=== PATIENT | male | born 1990 | race Caucasian/White ===

== ENCOUNTER 2017-08-18 23:42 | Inpatient (IN) ==
[2017-08-18] MEDS ORDERED: Ketamine Inj 200 MG/20 ML Vial IV.PUSH STA (23:50)
[2017-08-18] MEDS ORDERED: Ketamine Inj 500 MG/10 ML Vial ONE (23:51)
[2017-08-19] MEDS ORDERED: HYDROmorphone PF Inj 2 MG/ML Vial IV.PUSH ONE ×3 (00:25→04:06)
[2017-08-19 00:32] LABS: Baso # (Auto) 0.1 th/mm3 (0.0-0.2); Baso % (Auto) 0.4 % (0.0-2.0); Eos # (Auto) 0.1 th/mm3 (0.0-0.4); Hematocrit 45.1 % (39.0-51.0); Hemoglobin 15.5 gm/dL (13.0-17.0); Lymph # (Auto) 1.1 th/mm3 (1.0-4.8); Lymph % (Auto) 7.7 % (9.0-44.0); Mean Corpuscular HGB Conc 34.3 % (32.0-36.0); Mean Corpuscular Hemoglobin 29.5 pg (27.0-34.0); Mean Platelet Volume 9.5 fL (7.0-11.0); Mono # (Auto) 0.6 th/mm3 (0.0-0.9); Mono % (Auto) 4.3 % (0.0-8.0); Neut # (Auto) 12.8 th/mm3 (1.8-7.7); Neut % (Auto) 86.6 % (16.0-70.0); Platelet Count 208 th/mm3 (150-450); Red Blood Count 5.24 mil/mm3 (4.50-5.90); Red Cell Distribution Width 12.3 % (11.6-17.2); White Blood Count 14.8 th/mm3 (4.0-11.0)
[2017-08-19 00:49] LABS: Carbon Dioxide 23.2 meq/L (21.0-32.0); Potassium 3.5 meq/L (3.5-5.1)
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
[2017-08-19 00:59] LABS: Activated Partial Thrombo Time 21.5 sec (24.3-30.1); Prothrombin Time 10.3 sec (9.8-11.6)
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
[2017-08-19] MEDS ORDERED: Morphine Sulfate Inj 2 MG/ML Vial IV.PUSH PRN (05:45)
[2017-08-19] MEDS ORDERED: Morphine Inj 4 MG/ML Vial IV.PUSH PRN ×2 (05:56→10:00)
[2017-08-19] MEDS ORDERED: Pantoprazole Inj 40 MG Vial IV.PUSH SCH (06:00)
[2017-08-19] MEDS ORDERED: Ketorolac Inj 30 MG/ML (IVP) Vial IV.PUSH ONE (06:35)
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
[2017-08-19] MEDS ORDERED: Sodium Chlor 0.9% Inj 250 ML ONE (08:06)
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
[2017-08-19] MEDS ORDERED: Ketamine Inj 50 MG/5 ML Syringe IV.PUSH ONE (09:00)
[2017-08-19] MEDS ORDERED: Post-op Orders (for Pharmacy) OTHER STA (10:00)
[2017-08-19] MEDS ORDERED: Sodium Chlor 0.9% Inj 250 ML IV.SIG SCH (10:00)
[2017-08-19] MEDS ORDERED: Promethazine 25 MG Supp RECTAL PRN (10:00)
[2017-08-19] MEDS ORDERED: Bisacodyl 10 MG Supp RECTAL PRN (10:00)
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
--- NOTE | 2017-08-19 10:00 | P.OP ---
- Preoperative Diagnosis (1) Radius shaft fracture (2) Fx ulna shaft-closed Date of procedure: 08/19/17 Procedure: Open reduction internal fixation right radius and ulna shaft fractures Anesthesia: GETA Surgeon: Jose Rafael Heck MD Principal Android Developer: MARCELL Greer PA-C The surgical procedure was assisted by my physician executive marketing assistant. My P.A. presence was necessary throughout this case for the manipulation and positioning of the surgical extremity. My P.A. was assisting me throughout the duration of this procedure. The skill set of a physician executive marketing assistant was medically necessary to complete this procedure. During the surgical case the surgical supplies sterilizer was working at the back table and the physician executive marketing assistant was directly assisting me. Operation and Findings: Implants used : ITS Patient was seen and examined preoperatively. Patient was found to have displaced right radius and ulna shaft fractures. Informed consent was obtained and operative site was marked. Patient was brought to operating room and given IV sedation and general anesthesia. Timeout procedure was performed. Operative extremity was prepped and draped with alcohol followed by Hibiclens and draped in usual sterile fashion. IV antibiotics were administered prior to incision. Procedure began with a 5 inch incision over the subcutaneous border of the ulna. Fascia was elevated off of the bone. Fracture site was visualized. Fracture tenaculums were used to reduce fracture. Fracture keyed into anatomic alignment. A plate was placed across the fracture. Plate was provisionally held to bone with K wires. 3.5 cortical screws were used to compress plate to bone. Multiple screws were placed in each side of fracture. K wires were removed. Fluoroscopy confirmed excellent alignment of fracture with well- placed hardware. Incision was now closed with #1 Vicryl, 3-0 Vicryl, and tran. Next attention was turned to the radius. A 5 inch incision was made over the volar aspect of the forearm. A standard volar approach was utilized. The interval between the radial artery and superficial radial nerve was identified. Neurovascular structures were protected. Soft tissue was elevated off the bone. Fracture site was visualized. Fracture fragments were carefully reduced. Each fracture fragment keyed in anatomic alignment. K wires were used to hold provisional fixation. A plate was contoured to fit the radius. Plate was provisionally held with K wires. 3.5 cortical screws were used to compress plate to bone. Multiple screws were placed in each side of fracture. K wires were removed. Final fluoroscopy revealed excellent of fracture with well-placed hardware. Sterile dressings were applied with Xeroform 4 x 4 soft roll and Nino wrap. Patient was awakened and transferred to recovery room in stable condition. Forearm compartments were soft and compressible.
--- NOTE | 2017-08-19 10:19 | P.PNOP ---
Subjective Interval history: POD 0 s/p ORIF right radius/ulna stable in pacu Physical Exam Vital signs: Vital Signs 08/18/17 23:43 08/19/17 00:00 08/19/17 00:17 Temperature 98.2 F Pulse Rate 72 93 H Respiratory Rate 22 20 Blood Pressure 110/61 123/73 Pulse Oximetry 100 100 100 08/19/17 01:41 08/19/17 01:47 08/19/17 04:28 Temperature Pulse Rate 75 Respiratory Rate 18 18 18 Blood Pressure 102/59 L Pulse Oximetry 98 08/19/17 06:20 08/19/17 07:18 08/19/17 07:29 Temperature 98.4 F Pulse Rate 60 Respiratory Rate 18 19 19 Blood Pressure 113/54 L Pulse Oximetry 95 08/19/17 08:12 08/19/17 08:13 Temperature Pulse Rate Respiratory Rate 22 22 Blood Pressure Pulse Oximetry Intake & Output 08/18/17 08/19/17 08/19/17 18:59 06:59 18:59 Output Total 700 / 700 Balance -700 / -700 Weight 83.915 kg Output: Urine 700 / 700 Narrative: RUE: dressings clean and dry. 3+ swelling of forearm. full sensation distally. + cap refill Results - Labs CBC & Chem 7: 08/19/17 00:12 08/19/17 00:12 Laboratory Results - last 24 hr 08/19/17 08/19/17 08/19/17 00:12 00:12 00:12 WBC 14.8 H RBC 5.24 Hgb 15.5 Hct 45.1 MCV 86.0 MCH 29.5 MCHC 34.3 RDW 12.3 Plt Count 208 MPV 9.5 Neut % (Auto) 86.6 H Lymph % (Auto) 7.7 L [place] % (Auto) 4.3 Eos % (Auto) 1.0 Baso % (Auto) 0.4 Neut # (Auto) 12.8 H Lymph # (Auto) 1.1 [place] # (Auto) 0.6 Eos # (Auto) 0.1 Baso # (Auto) 0.1 WBC Differential . Differential Comment Auto diff final PT 10.3 INR 1.0 APTT 21.5 L Sodium 141 Potassium 3.5 Chloride 106 Carbon Dioxide 23.2 Anion Gap 12 BUN 10 Creatinine 1.09 Estimated GFR 81 L Random Glucose 109 H Calcium 9.0 Blood Type Blood Type Recheck Antibody Screen 08/19/17 00:12 WBC RBC Hgb Hct MCV MCH MCHC RDW Plt Count MPV Neut % (Auto) Lymph % (Auto) [place] % (Auto) Eos % (Auto) Baso % (Auto) Neut # (Auto) Lymph # (Auto) [place] # (Auto) Eos # (Auto) Baso # (Auto) WBC Differential Differential Comment PT INR APTT Sodium Potassium Chloride Carbon Dioxide Anion Gap BUN Creatinine Estimated GFR Random Glucose Calcium Blood Type O Positive Blood Type Recheck Required Antibody Screen Negative - Imaging Impressions Chest X-Ray 08/18/17 23:45 CONCLUSION: No acute cardiopulmonary disease Radius/Ulna X-Ray 08/18/17 23:47 CONCLUSION: Fractures of the radius and ulna. Abdomen/Pelvis CT 08/19/17 00:00 CONCLUSION: 1. No abdominal visceral injury Cervical Spine CT 08/19/17 00:00 CONCLUSION: 1. No acute fracture or subluxation. Chest CT 08/19/17 00:00 CONCLUSION: 1. No acute thoracic process. Forearm X-Ray 08/19/17 00:00 CONCLUSION: Satisfactory postoperative appearance of the right radius and ulna ORIF with extra medullary plates. Head CT 08/19/17 00:00 CONCLUSION: 1. No acute intracranial abnormality Forearm X-Ray 08/19/17 00:13 CONCLUSION: Bilateral radius and ulna fractures with improvement in alignment. Assessment and Plan - Assessment and Plan 1) Right Radius/Ulna Fx s/p ORIF - POD 0 -NWB -orthotech to place patient in Colleys sling -daily dressing changes POD 2 with primapore. do not wrap with jayme wrap or anything circumferential due to swelling -ice forearm -colleys sling for 48hrs and re-eval -plan for DC home when swelling appropriate -f/u with Hayden or PA in 2 weeks
[2017-08-19] MEDS ORDERED: *Meperidine Inj 25 MG/ML Vial PERIprocedural Use ONLY ONE ×2 (10:20→10:25)
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
[2017-08-19] MEDS ORDERED: fentaNYL Citrate Inj 100 MCG/2 ML Ampul ONE (10:34)
[2017-08-19] MEDS ORDERED: *morphine SULFATE 10 MG/ML PERIprocedure ONLY ONE (10:38)
[2017-08-19] MEDS ORDERED: Lidocaine PF 1% Inj 5 ML Syringe INFILTRATN ONE (12:00)
[2017-08-19] MEDS: Ketorolac Inj 30 MG/ML (IVP) Vial IV.PUSH SCH ×3 (12:22→21:21)
[2017-08-19] MEDS: Senna/Docusate Sodium 8.6/50 MG Tablet PO SCH ×2 (12:41→21:25)
[2017-08-19] MEDS: Calcium/Vitamin D 250/125 MG Tablet PO SCH ×2 (12:57→18:34)
[2017-08-19] MEDS ORDERED: Ketorolac Inj 30 MG/ML (IVP) Vial IV.PUSH PRN (13:01)
[2017-08-19] MEDS: Acetaminophen 325 MG Tablet PO PRN ×2 (13:58→21:19)
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
[2017-08-19] MEDS: ceFAZolin Inj 2,000 MG in Sodium Chlor 0.9% Inj 80 ML IV.SIG SCH (16:40)
--- NOTE | 2017-08-19 17:30 | ECG ---
Date Performed: 08/19/2017 Time Performed: 08:02:37 PTAGE: 26 years EKG: SINUS BRADYCARDIA WITH SHORT AL INTERVAL BORDERLINE ECG NO PREVIOUS TRACING DOCTOR: Rex Camacho Interpretating Date/Time 08/19/2017 17:29:42
--- NOTE | 2017-08-19 17:33 | ECG ---
Date Performed: 08/19/2017 Time Performed: 06:39:24 PTAGE: 26 years EKG: SINUS BRADYCARDIA WITH SHORT CA INTERVAL BORDERLINE ECG NO PREVIOUS TRACING DOCTOR: Rex Camacho Interpretating Date/Time 08/19/2017 17:31:22
[2017-08-19] MEDS: Gabapentin 300 MG Capsule PO SCH (18:34)
[2017-08-20] MEDS: ceFAZolin Inj 2,000 MG in Sodium Chlor 0.9% Inj 80 ML IV.SIG SCH ×2 (00:18→07:52)
[2017-08-20] MEDS: Ketorolac Inj 30 MG/ML (IVP) Vial IV.PUSH SCH (04:14)
[2017-08-20] MEDS: Acetaminophen 325 MG Tablet PO PRN ×5 (04:15→23:08)
[2017-08-20 07:30] LABS: Baso % (Auto) 0.2 % (0.0-2.0); Eos # (Auto) 0.1 th/mm3 (0.0-0.4); Eos % (Auto) 0.7 % (0.0-4.0); Hematocrit 36.5 % (39.0-51.0); Hemoglobin 12.5 gm/dL (13.0-17.0); Lymph % (Auto) 12.4 % (9.0-44.0); Mean Corpuscular HGB Conc 34.2 % (32.0-36.0); Mean Corpuscular Hemoglobin 29.7 pg (27.0-34.0); Mean Corpuscular Volume 86.9 fL (80.0-100.0); Mono # (Auto) 0.6 th/mm3 (0.0-0.9); Mono % (Auto) 6.9 % (0.0-8.0); Neut # (Auto) 6.8 th/mm3 (1.8-7.7); Neut % (Auto) 79.8 % (16.0-70.0); Platelet Count 157 th/mm3 (150-450); Red Cell Distribution Width 12.7 % (11.6-17.2); White Blood Count 8.5 th/mm3 (4.0-11.0)
[2017-08-20 07:43] LABS: Anion Gap 10 meq/L (5-15); Blood Urea Nitrogen 10 mg/dL (7-18); Calcium 8.4 mg/dL (8.5-10.1); Carbon Dioxide 22.3 meq/L (21.0-32.0); Chloride 109 meq/L (98-107); Glomerular Filtration Rate Greater Than 89 mL/min (>89); Glucose,Random 120 mg/dL (74-106); Potassium 3.5 meq/L (3.5-5.1); Sodium 141 meq/L (136-145)
--- NOTE | 2017-08-20 07:59 | P.PNOP ---
Subjective Interval history: pain under control Physical Exam Vital signs: Vital Signs 08/19/17 08:12 08/19/17 08:13 08/19/17 10:20 Temperature 97 F L Pulse Rate 102 H Respiratory Rate 22 22 19 Blood Pressure 126/69 Pulse Oximetry 96 08/19/17 10:25 08/19/17 10:30 08/19/17 10:45 Temperature Pulse Rate 101 H 85 67 Respiratory Rate 22 22 23 Blood Pressure 132/66 134/70 124/64 Pulse Oximetry 96 100 98 08/19/17 11:00 08/19/17 12:00 08/19/17 12:25 Temperature 98 F Pulse Rate 61 61 64 Respiratory Rate 19 18 20 Blood Pressure 115/64 112/62 118/62 Pulse Oximetry 98 97 98 08/19/17 14:28 08/19/17 16:00 08/19/17 18:36 Temperature 98.2 F Pulse Rate 64 Respiratory Rate 18 18 Blood Pressure 110/65 Pulse Oximetry 99 98 08/19/17 20:00 08/20/17 00:00 Temperature 98.4 F 97.5 F L Pulse Rate 64 71 Respiratory Rate 17 16 Blood Pressure 100/56 L 115/57 L Pulse Oximetry 97 98 Intake & Output 08/19/17 08/20/17 08/20/17 18:59 06:59 18:59 Intake Total 2602 / 2602 1266 / 1266 Output Total 1600 / 1600 1300 / 1300 Balance 1002 / 1002 -34 / -34 Weight 84.1 kg Intake: IV 1202 / 1202 1026 / 1026 LR 1000 mL Inj 1,000 ML @ 100 1102 / 1102 926 / 926 mls/hr IV.CONT .Q10H BENJI Rx#: [id number] Ancef Inj 2,000 MG In NS Inj 80 100 / 100 100 / 100 ML @ 200 mls/hr IV.SIG Q8H BENJI Rx#:[id number] Oral 0 / 0 240 / 240 Anesthesia Amount 1400 / 1400 Output: Urine 1400 / 1400 1300 / 1300 Estimated Blood Loss 200 / 200 Other: # Voids 3 Date of Last Bowel Movement 08/17/17 08/17/17 08/17/17 # Bowel Movements 2 Narrative: in bed, nad dressing c/d/i colleys sling in place swelling nvi, sensation intact cap refill able to move fingers Results - Labs CBC & Chem 7: 08/20/17 06:10 08/20/17 06:10 Laboratory Results - last 24 hr 08/20/17 08/20/17 06:10 06:10 WBC 8.5 RBC 4.20 L Hgb 12.5 L D Hct 36.5 L MCV 86.9 MCH 29.7 MCHC 34.2 RDW 12.7 Plt Count 157 MPV 9.0 Neut % (Auto) 79.8 H Lymph % (Auto) 12.4 [place] % (Auto) 6.9 Eos % (Auto) 0.7 Baso % (Auto) 0.2 Neut # (Auto) 6.8 Lymph # (Auto) 1.0 [place] # (Auto) 0.6 Eos # (Auto) 0.1 Baso # (Auto) 0.0 WBC Differential . Differential Comment Auto diff final Sodium 141 Potassium 3.5 Chloride 109 H Carbon Dioxide 22.3 Anion Gap 10 BUN 10 Creatinine 0.81 Estimated GFR Greater than 89 Random Glucose 120 H Calcium 8.4 L - Imaging Impressions Forearm X-Ray 08/19/17 00:00 CONCLUSION: Satisfactory postoperative appearance of the right radius and ulna ORIF with extra medullary plates. Assessment and Plan - Assessment and Plan 1) Right Radius/Ulna Fx s/p ORIF - POD 0 -NWB - patient in Colleys sling -daily dressing changes POD 2 with primapore. do not wrap with jayme wrap or anything circumferential due to swelling -ice forearm -colleys sling for 48hrs and re-eval -plan for DC home when swelling appropriate -f/u with Hayden or GUDELIA in 2 weeks
[2017-08-20] MEDS: Gabapentin 300 MG Capsule PO SCH ×3 (08:11→17:15)
[2017-08-20] MEDS: Calcium/Vitamin D 250/125 MG Tablet PO SCH ×3 (08:11→17:15)
[2017-08-20] MEDS: Senna/Docusate Sodium 8.6/50 MG Tablet PO SCH ×2 (08:11→21:43)
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
[2017-08-21] MEDS: Acetaminophen 325 MG Tablet PO PRN ×3 (05:34→12:42)
[2017-08-21] MEDS: Calcium/Vitamin D 250/125 MG Tablet PO SCH ×2 (09:10→12:42)
[2017-08-21] MEDS: Gabapentin 300 MG Capsule PO SCH ×2 (09:10→12:42)
[2017-08-21] MEDS: Senna/Docusate Sodium 8.6/50 MG Tablet PO SCH (09:11)
--- NOTE | 2017-08-21 12:13 | P.PNOP ---
Physical Exam Vital signs: Vital Signs 08/20/17 12:38 08/20/17 16:00 08/20/17 17:45 Temperature 98.2 F Pulse Rate 57 L Respiratory Rate 18 19 18 Blood Pressure 109/58 L Pulse Oximetry 99 08/20/17 20:00 08/21/17 00:00 08/21/17 08:00 Temperature 97.9 F 97.8 F 98.1 F Pulse Rate 78 65 64 Respiratory Rate 20 20 14 Blood Pressure 140/88 132/68 108/60 Pulse Oximetry 98 99 98 08/21/17 09:40 Temperature Pulse Rate Respiratory Rate 18 Blood Pressure Pulse Oximetry Intake & Output 08/20/17 08/21/17 08/21/17 18:59 06:59 18:59 Intake Total 1000 / 1000 Balance 1000 / 1000 Intake: Oral 1000 / 1000 Other: # Voids 5 Date of Last Bowel Movement 08/20/17 08/20/17 08/20/17 # Bowel Movements 2 Narrative: GENERAL: This is a 26-year-old male lying in bed asleep. No distress noted. SKIN: Warm and dry. HEAD: Atraumatic. Normocephalic. EYES: PERRLA ENT: No nasal bleeding or discharge. Mucous membranes pink and moist. NECK: Trachea midline. No JVD. CARDIOVASCULAR: Regular rate and rhythm. RESPIRATORY: No accessory muscle use. Lungs are clear to auscultation. Breath sounds equal bilaterally. No distress or dyspnea. GASTROINTESTINAL: BS + x 4 quads. Abdomen soft, non-tender, nondistended. MUSCULOSKELETAL: Extremities without cyanosis, or edema. Right upper extremity in collyes sling for elevation. + peripheral pulses x 4 extremities. Warm with good capillary refill and sensation. MAEW. NEUROLOGICAL: Asleep. Results - Labs CBC & Chem 7: 08/20/17 06:10 08/20/17 06:10 Assessment and Plan - Assessment and Plan 1) Right Radius/Ulna Fx s/p ORIF - -NWB - patient in Colleys sling -daily dressing changes POD 2 with primapore. do not wrap with jayme wrap or anything circumferential due to swelling -ice forearm -colleys sling for 48hrs and re-eval -plan for DC home, swelling improved -f/u with Hayden or PA in 2 weeks
[2017-08-21 13:10] VITALS: BP 128/68; PULSE 68; RESP 16; TEMP 97.4; O2SAT 97
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
== END 2017-08-21 16:32 | disposition home or self-care (01) ==
LOC: NEPC 23:42 → NEDA 08-19 02:00 → NEDH 08-19 06:20 → N06 08-19 12:38
PROVIDERS: ADMIT Surgery; ATTEND Surgery
DX: S40.211A Abrasion of right shoulder, initial encounter; F19.11 Other psychoactive substance abuse, in remission; S52.301A Unspecified fracture of shaft of right radius, initial encounter for closed fracture; S51.811A Laceration without foreign body of right forearm, initial encounter; Z79.891 Long term (current) use of opiate analgesic; S52.201A Unspecified fracture of shaft of right ulna, initial encounter for closed fracture; V43.62XA Car passenger injured in collision with other type car in traffic accident, initial encounter; Z79.899 Other long term (current) drug therapy

== ENCOUNTER 2018-02-17 07:30 | Inpatient (IN) ==
[2018-02-17] MEDS ORDERED: Tobramycin Sulfate 1,200 MG Vial (for ortho/sterile core) OTHER ONE (08:22)
[2018-02-17] MEDS ORDERED: Chlorhexidine Gluconate 2% 1 Pack (2 Cloths) TOPICAL ONE (09:00)
[2018-02-17] MEDS ORDERED: Chlorhexidine 4% Topical 120 APPLIC/120 ML Bottle TOPICAL SCH (09:00)
[2018-02-17] MEDS ORDERED: Sodium Chlor 0.9% Inj 500 ML IV.CONT ONE (09:00)
[2018-02-17] MEDS ORDERED: Metoprolol Tartrate 25 MG Tablet PO ONE (09:00)
[2018-02-17] MEDS ORDERED: ceFAZolin Inj 1 GM Vial (Addvantage) IV.SIG ONE (09:36)
[2018-02-17] MEDS ORDERED: Post-op Orders (for Pharmacy) OTHER STA ×2 (10:27→10:30)
--- NOTE | 2018-02-17 10:34 | XR ---
EXAM DATE: 02/17/2018 10:29 AM EST AGE/SEX: 27 years / Male INDICATIONS: Hardware removal. CLINICAL DATA: This is the patient's initial encounter. Patient reports that signs and symptoms have been present for 1 day and indicates a pain score of Nonresponsive. MEDICAL/SURGICAL HISTORY: Non-responsive. Non-responsive. COMPARISON: [facility] – [place], FOREARM RIGHT 2V, 08/19/2017. . FINDINGS: Hardware has been removed from the ulnar shaft. Hardware remains within the radial shaft. CONCLUSION: There is post removal of hardware from the ulnar shaft. Electronically signed by: Micha Masterson MD Board Certified Radiologist 02/17/2018 10:33 AM EST
--- NOTE | 2018-02-17 10:37 | P.OP ---
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 Anesthesia: GETA Surgeon: Jose Rafael Heck MD Sail Lay Out Worker: MARCELL Greer PA-C The surgical procedure was assisted by my physician family services assistant. My P.A. presence was necessary throughout this case for the manipulation and positioning of the surgical extremity. My P.A. was assisting me throughout the duration of this procedure. The skill set of a physician family services assistant was medically necessary to complete this procedure. During the surgical case the surgical resident was working at the back table and the physician family services assistant was directly assisting me. Operation and Findings: Van is known to me from previous open reduction internal fixation of right radius and ulna fractures. He has been incarcerated and has not followed up as scheduled. He is presented to clinic this week with signs of infection of right ulna with probable nonunion. Informed consent was obtained. Operative site was marked. He was given IV sedation and general anesthesia. Antibiotics were held until cultures were given. Right arm was prepped with alcohol followed by Hibiclens and draped in usual sterile fashion. Timeout procedure was performed. Procedure began with incision through previous scar. The scar was excised along with sinus tracts. Full-thickness skin was excised. At this point attention was turned to hardware removal. The hardware was visualized. Each of the screws was now removed. The plate was now removed. Next attention was turned towards debridement of the ulna. An excisional debridement was performed. Cultures were obtained from deep tissue. Curettes and rongeurs were used to debride soft tissue and bone. A TPS bur was used to thoroughly debride the fracture and holes from the screws. After completion of debridement the wound was thoroughly irrigated with pulsatile lavage. Next antibiotic beads were placed. 10 cc of stimulan cement was mixed with 1 g of vancomycin and 1.2 g of tobramycin. Once the beads were set they were packed into the nonunion site and defect of the ulna. The incision was now closed with 3-0 PDS and 3-0 nylon. Sterile dressings were applied. Patient was awakened and transferred to recovery room in stable condition. Needle and sponge counts were correct.
[2018-02-17] MEDS ORDERED: *HYDROmorphone PF Inj 1 MG/ML Ampul PERIprocedural Use ONLY ONE ×2 (11:12→11:21)
[2018-02-17] MEDS ORDERED: *Meperidine Inj 25 MG/ML Vial PERIprocedural Use ONLY ONE (11:12)
[2018-02-17] MEDS ORDERED: Morphine Inj 4 MG/ML Vial ONE (11:24)
[2018-02-17] MEDS ORDERED: fentaNYL Citrate Inj 100 MCG/2 ML Ampul ONE (11:24)
[2018-02-17] MEDS ORDERED: Morphine Inj 4 MG/ML Vial IV.PUSH PRN (11:30)
--- NOTE | 2018-02-17 11:49 | P.PNOP ---
Subjective Interval history: POD 0 s/p I&D with removal of HW and Abx bead placement right forearm stable in pacu Physical Exam Vital signs: Vital Signs 02/17/18 08:40 02/17/18 11:10 02/17/18 11:15 Temperature 97.8 F 97.8 F Pulse Rate 93 H 88 Respiratory Rate 16 22 23 Blood Pressure 134/80 138/85 133/81 Pulse Oximetry 100 100 100 02/17/18 11:30 02/17/18 11:45 Temperature Pulse Rate 85 85 Respiratory Rate 25 H 25 H Blood Pressure 146/84 H 134/80 Pulse Oximetry 100 100 Intake & Output 02/16/18 02/17/18 02/17/18 18:59 06:59 18:59 Weight 81.5 kg Other: Weight On Admission 81.5 kg Narrative: RUE: +long arm splint. intact Results - Imaging Impressions Forearm X-Ray 02/17/18 00:00 CONCLUSION: There is post removal of hardware from the ulnar shaft. 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 will likely require picc line to be arranged by ID -f/u with Hayden or GUDELIA in 2 weeks
[2018-02-17] MEDS ORDERED: Piperacil/Tazo 3.375 GM Premix 3.375 GM/50 ML PIGGYBACK IV.SIG SCH (14:00)
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
[2018-02-17] MEDS ORDERED: Vancomycin Consult Pharmacy OTHER PRN (14:02)
[2018-02-17] MEDS: Calcium/Vitamin D 250/125 MG Tablet PO SCH ×2 (15:56→17:12)
[2018-02-17 16:51] LABS: Baso % (Auto) 0.3 % (0.0-2.0); Eos % (Auto) 0.1 % (0.0-4.0); Hematocrit 40.6 % (39.0-51.0); Hemoglobin 14.6 gm/dL (13.0-17.0); Lymph # (Auto) 0.6 th/mm3 (1.0-4.8); Lymph % (Auto) 7.7 % (9.0-44.0); Mean Corpuscular Hemoglobin 30.8 pg (27.0-34.0); Mean Corpuscular Volume 85.4 fL (80.0-100.0); Mean Platelet Volume 8.5 fL (7.0-11.0); Mono # (Auto) 0.1 th/mm3 (0.0-0.9); Mono % (Auto) 1.4 % (0.0-8.0); Neut # (Auto) 7.1 th/mm3 (1.8-7.7); Neut % (Auto) 90.5 % (16.0-70.0); Platelet Count 193 th/mm3 (150-450); Red Blood Count 4.76 mil/mm3 (4.50-5.90); Red Cell Distribution Width 12.8 % (11.6-17.2); White Blood Count 7.9 th/mm3 (4.0-11.0)
[2018-02-17 17:13] LABS: Alanine Aminotransferase 17 U/L (12-78); Albumin 3.9 g/dL (3.4-5.0); Anion Gap 7 meq/L (5-15); Aspartate Aminotransferase 13 U/L (15-37); Blood Urea Nitrogen 11 mg/dL (7-18); Calcium 9.1 mg/dL (8.5-10.1); Carbon Dioxide 26.9 meq/L (21.0-32.0); Chloride 102 meq/L (98-107); Glomerular Filtration Rate 72 mL/min (>89); Glucose,Random 170 mg/dL (74-106); Potassium 3.7 meq/L (3.5-5.1); Sodium 136 meq/L (136-145)
[2018-02-17 17:15] LABS: Alkaline Phosphatase 75 U/L (45-117); Total Protein 7.7 g/dL (6.4-8.2)
[2018-02-17 17:19] LABS: Erythrocyte Sedimentation Rate 4 mm/hr (0-15)
[2018-02-17] MEDS: Vancomycin Inj 1,250 MG in Sodium Chlor 0.9% Inj 250 ML IV.SIG SCH (19:07)
[2018-02-17] MEDS: Senna/Docusate Sodium 8.6/50 MG Tablet PO SCH (20:22)
[2018-02-17] MEDS ORDERED: Vancomycin Inj 1,000 MG in Sodium Chlor 0.9% Inj 250 ML IV.SIG SCH (23:00)
[2018-02-18] MEDS: Vancomycin Inj 1,250 MG in Sodium Chlor 0.9% Inj 250 ML IV.SIG SCH ×3 (02:21→17:58)
--- NOTE | 2018-02-18 08:41 | P.PNOP ---
Subjective Interval history: The patient does not have any new complaints as far as the right arm is concerned. There is no new numbness or tingling Physical Exam Vital signs: Vital Signs 02/17/18 08:40 02/17/18 11:10 02/17/18 11:15 Temperature 97.8 F 97.8 F Pulse Rate 93 H 88 Respiratory Rate 16 22 23 Blood Pressure 134/80 138/85 133/81 Pulse Oximetry 100 100 100 02/17/18 11:30 02/17/18 11:45 02/17/18 12:00 Temperature Pulse Rate 85 85 76 Respiratory Rate 25 H 25 H 25 H Blood Pressure 146/84 H 134/80 129/72 Pulse Oximetry 100 100 100 02/17/18 13:00 02/17/18 14:00 02/17/18 15:00 Temperature 98.1 F Pulse Rate 63 94 H 71 Respiratory Rate 22 20 18 Blood Pressure 109/62 117/67 102/59 L Pulse Oximetry 100 100 100 02/17/18 16:39 02/17/18 20:00 02/18/18 00:00 Temperature 98 F 97.4 F L 97.9 F Pulse Rate 82 62 73 Respiratory Rate 18 20 18 Blood Pressure 121/59 L 127/60 100/57 L Pulse Oximetry 97 97 96 02/18/18 04:08 Temperature 97.6 F Pulse Rate 63 Respiratory Rate 18 Blood Pressure 105/64 Pulse Oximetry 96 Intake & Output 02/17/18 02/18/18 02/18/18 18:59 06:59 18:59 Intake Total 2460 / 2460 1505.0 / 1505.0 Output Total 50 / 50 Balance 2410 / 2410 1505.0 / 1505.0 Weight 81.5 kg 82 kg Intake: IV 1000 / 1000 725.0 / 725.0 LR 1000 mL Inj 1,000 ML @ 80 1000 / 1000 mls/hr IV.CONT .[id number] [facility] Rx# :[id number] Maxipime Inj 2,000 MG In NS Inj 200 / 200 100 ML @ 200 mls/hr IV.SIG Q12H [facility] Rx#:[id number] Vancomycin Inj 1,250 MG In NS 525.0 / 525.0 Inj 250 ML @ 250 mls/hr IV.SIG Q8H [facility] Rx#:[id number] Oral 460 / 460 780 / 780 Anesthesia Amount 1000 / 1000 Output: Estimated Blood Loss 50 / 50 Other: # Voids 1 3 Weight On Admission 81.5 kg Narrative: The right upper extremity is dressed and clean. He can move the fingers well. There is some mild swelling about the fingertips. There is brisk capillary refill with normal sensation Results - Labs CBC & Chem 7: 02/17/18 16:02 02/17/18 16:02 Laboratory Results - last 24 hr 02/17/18 02/17/18 16:02 16:02 WBC 7.9 RBC 4.76 Hgb 14.6 Hct 40.6 MCV 85.4 MCH 30.8 MCHC 36.0 RDW 12.8 Plt Count 193 MPV 8.5 Prelim Diff (Auto) Caponizer Neut % (Auto) 90.5 H Lymph % (Auto) 7.7 L [place] % (Auto) 1.4 Eos % (Auto) 0.1 Baso % (Auto) 0.3 Neut # (Auto) 7.1 Lymph # (Auto) 0.6 L [place] # (Auto) 0.1 Eos # (Auto) 0.0 Baso # (Auto) 0.0 WBC Differential . Differential Comment Auto diff final ESR 4 Sodium 136 Potassium 3.7 Chloride 102 Carbon Dioxide 26.9 Anion Gap 7 BUN 11 Creatinine 1.20 Estimated GFR 72 L Random Glucose 170 H Calcium 9.1 Total Bilirubin 1.0 AST 13 L ALT 17 Alkaline Phosphatase 75 C-Reactive Protein Less than 0.29 Total Protein 7.7 Albumin 3.9 Microbiology 02/17/18 10:00 Tissue - Other Fungal Smear - Final No fungal elements seen 02/17/18 10:00 Tissue - Other Gram Stain - Final - Imaging Impressions Forearm X-Ray 02/17/18 00:00 CONCLUSION: There is post removal of hardware from the ulnar shaft. 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 will likely require picc line to be arranged by ID -f/u with Hayden or GUDELIA in 2 weeks
[2018-02-18] MEDS: Senna/Docusate Sodium 8.6/50 MG Tablet PO SCH ×2 (09:03→21:03)
[2018-02-18] MEDS: Multivitamin/Minerals Therapeutic Tablet PO SCH (09:03)
[2018-02-18] MEDS: Calcium/Vitamin D 250/125 MG Tablet PO SCH ×3 (09:03→17:58)
[2018-02-18 09:17] LABS: Glomerular Filtration Rate Greater Than 89 mL/min (>89)
[2018-02-18] MEDS ORDERED: Pharmacy Ordered Lab Info OTHER ONE (17:45)
[2018-02-19] MEDS: Vancomycin Inj 1,250 MG in Sodium Chlor 0.9% Inj 250 ML IV.SIG SCH ×2 (01:30→10:56)
[2018-02-19] MEDS: Multivitamin/Minerals Therapeutic Tablet PO SCH (08:04)
[2018-02-19] MEDS: Senna/Docusate Sodium 8.6/50 MG Tablet PO SCH ×2 (08:04→20:24)
[2018-02-19] MEDS: Calcium/Vitamin D 250/125 MG Tablet PO SCH ×3 (08:05→17:39)
--- NOTE | 2018-02-19 12:21 | P.PNOP ---
Subjective Interval history: No new complaints as far as the arm is concerned Physical Exam Vital signs: Vital Signs 02/18/18 16:00 02/18/18 20:00 02/19/18 00:00 Temperature 98 F 97.9 F 97.9 F Pulse Rate 66 61 57 L Respiratory Rate 18 18 18 Blood Pressure 99/52 L 98/54 L 100/59 L Pulse Oximetry 98 98 98 02/19/18 08:00 Temperature 97.3 F L Pulse Rate 53 L Respiratory Rate 17 Blood Pressure 106/60 Pulse Oximetry 97 Intake & Output 02/18/18 02/19/18 02/19/18 18:59 06:59 18:59 Intake Total 962.5 / 962.5 2825.0 / 2825.0 220 / 220 Balance 962.5 / 962.5 2825.0 / 2825.0 220 / 220 Weight 70.6 kg Intake: IV 362.5 / 362.5 1625.0 / 1625.0 LR 1000 mL Inj 1,000 ML @ 80 1000 / 1000 mls/hr IV.CONT .[id number] [facility] Rx# :[id number] Maxipime Inj 2,000 MG In NS Inj 100 / 100 100 / 100 100 ML @ 200 mls/hr IV.SIG Q12H [facility] Rx#:[id number] Vancomycin Inj 1,250 MG In NS 262.5 / 262.5 525.0 / 525.0 Inj 250 ML @ 250 mls/hr IV.SIG Q8H [facility] Rx#:[id number] Oral 600 / 600 1200 / 1200 220 / 220 Other: # Voids 5 # Urine Diapers 5 Narrative: The right upper extremity is dressed and clean. He can move the fingers well. There is some mild swelling about the fingertips. There is brisk capillary refill with normal sensation. No change from yesterday. 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 will likely require picc line to be arranged by ID -f/u with Hayden or GUDELIA in 2 weeks
[2018-02-19] MEDS: ceFAZolin 2 GM Premix Inj 2 GM/50 ML PIGGYBACK IV.SIG SCH ×2 (16:59→17:39)
[2018-02-19] MEDS ORDERED: Pharmacy Ordered Lab Info OTHER ONE (17:45)
[2018-02-20] MEDS: ceFAZolin 2 GM Premix Inj 2 GM/50 ML PIGGYBACK IV.SIG SCH ×2 (01:10→09:32)
[2018-02-20 05:33] LABS: Glomerular Filtration Rate Greater Than 89 mL/min (>89)
--- NOTE | 2018-02-20 07:14 | P.PNOP ---
Subjective Interval history: POD 3 s/p I&D with ARACELIS and Abx bead placement right ulna doing well. pain controlled. no new complaints. Physical Exam Vital signs: Vital Signs 02/19/18 08:00 02/19/18 11:30 02/19/18 12:00 Temperature 97.3 F L 98.3 F Pulse Rate 53 L 60 Respiratory Rate 17 20 16 Blood Pressure 106/60 165/81 H Pulse Oximetry 97 98 02/19/18 16:00 02/19/18 20:00 02/20/18 00:00 Temperature 97.9 F 97.8 F 97.6 F Pulse Rate 54 L 58 L 54 L Respiratory Rate 17 20 16 Blood Pressure 102/56 L 113/55 L 106/58 L Pulse Oximetry 97 98 99 Intake & Output 02/19/18 02/20/18 02/20/18 18:59 06:59 18:59 Intake Total 892.5 / 892.5 1010 / 1010 Balance 892.5 / 892.5 1010 / 1010 Weight 75.2 kg Intake: IV 412.5 / 412.5 50 / 50 Maxipime Inj 2,000 MG In NS Inj 100 / 100 100 ML @ 200 mls/hr IV.SIG Q12H BENJI Rx#:[id number] Vancomycin Inj 1,250 MG In NS 262.5 / 262.5 Inj 250 ML @ 250 mls/hr IV.SIG Q8H BENJI Rx#:[id number] Ancef 2 GM Premix Inj 2 gm In 50 / 50 50 / 50 50 ml @ 200 mls/hr IV.SIG Q8H BENJI Rx#:[id number] Oral 480 / 480 960 / 960 Other: # Voids 4 8 # Bowel Movements 1 Narrative: RUE: Dressings clean and dry. intact. NVI to median/ulnar nerve. 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 will likely require picc line to be arranged by ID -f/u with [facility] or [facility] in 2 weeks -cleared for discharge once infectious Dz arranged antibiotics
--- NOTE | 2018-02-20 07:36 | P.DS ---
Date of admission: 02/17/18 08:18 Primary care physician: UNKNOWN Attending physician on discharge: Jose Rafael Heck Anticipated date of discharge: 02/20/18 Brief History from admission: Patient previously known to Dr. Heck for open reduction internal fixation of the right radius and ulna. Patient was seen in the office for his discharge appointment in August and then was lost to follow-up. He showed up a week ago escorted by correctional facility offers as he has been in penit[facility]. He states that he has had multiple issues with the left arm and states that 3 different screws had come out. The decision was made to move forward with irrigation and debridement with removal of hardware due to subsequent infection. DS: Diagnosis - Discharge Diagnosis (1) Chronic osteomyelitis of right ulna Status: Acute (2) Fracture of right ulna with nonunion Status: Acute DS: Summary Hospital Course: Patient admitted from an outpatient basis for removal of hardware with irrigation and debridement of the right ulna. He tolerated it well. He was admitted to [facility]. Cultures were returned back positive for MSSA. Infectious disease was consulted. Will defer to infectious disease for antibiotic arrangement. He was placed in a long-arm splint and will maintain that splint at all times. He will remain nonweightbearing in the right arm. He was hemodynamically stable and fit for discharge back to the correctional facility. He is cleared for discharge when chatterbox been arranged by the infectious disease team. He will follow-up with Dr. Heck or his PA in 2 weeks. - Time Spent with Patient Total time spent providing and/or coordinating discharge services: Less than 30 minutes - Quality: VTE Deep Vein Thrombosis/Pulmonary Embolism Present on Admission: No Exam Vital signs: Vital Signs 02/19/18 08:00 02/19/18 11:30 02/19/18 12:00 Temperature 97.3 F L 98.3 F Pulse Rate 53 L 60 Respiratory Rate 17 20 16 Blood Pressure 106/60 165/81 H Pulse Oximetry 97 98 02/19/18 16:00 02/19/18 20:00 02/20/18 00:00 Temperature 97.9 F 97.8 F 97.6 F Pulse Rate 54 L 58 L 54 L Respiratory Rate 17 20 16 Blood Pressure 102/56 L 113/55 L 106/58 L Pulse Oximetry 97 98 99 Intake & Output 02/19/18 02/20/18 02/20/18 18:59 06:59 18:59 Intake Total 892.5 / 892.5 1010 / 1010 Balance 892.5 / 892.5 1010 / 1010 Weight 75.2 kg Intake: IV 412.5 / 412.5 50 / 50 Maxipime Inj 2,000 MG In NS Inj 100 / 100 100 ML @ 200 mls/hr IV.SIG Q12H BENJI Rx#:[id number] Vancomycin Inj 1,250 MG In NS 262.5 / 262.5 Inj 250 ML @ 250 mls/hr IV.SIG Q8H BENJI Rx#:[id number] Ancef 2 GM Premix Inj 2 gm In 50 / 50 50 / 50 50 ml @ 200 mls/hr IV.SIG Q8H BENJI Rx#:[id number] Oral 480 / 480 960 / 960 Other: # Voids 4 8 # Bowel Movements 1 Narrative: RUE: Dressings clean and dry. intact. NVI to median/ulnar nerve. full extension of wrist and fingers Results Procedures completed during hospitalization: Irrigation and debridement with removal of hardware and antibiotic bead placement right ulna Labs on day of discharge: Labs from last 24 hours 02/20/18 04:00 Creatinine 0.78 Estimated GFR Greater than 89 - Impressions ITS Impressions Forearm X-Ray 02/17/18 00:00 CONCLUSION: There is post removal of hardware from the ulnar shaft. Discharge Plan - Discharge Disposition Patient Disposition: [address] [employer] - Discharge Condition Condition: Fair - Discharge Order Discharge Orders: Discharge Order (Routine); Ordered 02/20/18 Ordered By: Clarence Weber - Physicians Team Primary Care Provider: UNKNOWN, Attending Provider: Jose Rafael Heck Other Providers: Jose Rafael Heck MD ; Shamika Amaya MD - Rxs /Orders / Referrals /Forms Prescriptions: Continue acetaminophen 325 mg Tablet 650 mg PO Q4H PRN (Reason: Pain 1-10 And/Or Fever >101f) RF: 0 Referrals: Jose Rafael Heck MD [Physician] - See Instructions (2 weeks) UNKNOWN, [Primary Care Provider] - See Instructions
[2018-02-20] MEDS: Multivitamin/Minerals Therapeutic Tablet PO SCH (09:32)
[2018-02-20] MEDS: Calcium/Vitamin D 250/125 MG Tablet PO SCH ×3 (09:32→17:31)
[2018-02-20] MEDS: Senna/Docusate Sodium 8.6/50 MG Tablet PO SCH ×2 (09:32→22:13)
--- NOTE | 2018-02-20 10:32 | P.DCO ---
Post Hospital Infusion Therapy - Infusion Therapy Location of Infusion Therapy: Ambulatory Infusion Therapy Order (IV Abx in long term) - Patient Information Patient Weight: 75.2 kg - Diagnosis (1) Osteomyelitis of right ulna Code(s): M86.9 - Osteomyelitis, unspecified (2) MSSA (methicillin susceptible Staphylococcus aureus) infection Code(s): A49.01 - Methicillin susceptible Staphylococcus aureus infection, unspecified site - Administer Medication Ceftriaxone Dose: 2 grams IV Directions: q 24 hours Stop Treatment: 03/30/18 - Additional Information Venous Access: PICC Line Additional Instructions: [x] Peripheral flush and dressing changes per protocol [x] Implanted port and central pipe line inspector: * Implanted port: 10 ml Normal Saline followed by 5 ml Heparin 100 units/ml Heparin flush after each use and monthly to maintain. [] May leave port accessed during therapy. [] May leave peripheral site accessed for duration of therapy. [x] If patient has SOB or respiratory distress, check oxygen saturation. If less than 90% or clinical signs of respiratory distress, administer oxygen at 2 L/min. via nasal cannula and notify physician. [x] Anaphylaxis/Reaction orders: * Stop infusion. * Keep IV line open with saline flush. * Notify physician. * Monitor vital signs every 15 minutes until symptoms resolve. * Check Oxygen saturation; Oxygen at 2 L/min. via nasal cannula if less than 90% or clinical signs of respiratory distress. * Administer diphenhydramine (Benadryl) 25 mg IV STAT, (unless patient has received as pre-med). May repeat once, if necessary. * Solu-Cortef 250 mg IVP over 30-60 seconds, use 100 mg vials for each dissolution. * Epinephrine (1mg/1 ml) 0.3 mg subcutaneously or IVP now with any signs of respiratory distress. * Check with physician for new additional pre-med orders if patient is re- challenged or re-treated. [x] May remove PICC line when treatment complete. [x] If the patient is admitted to the hospital, the ED, or transferred via [facility] , complete transfer form including medication reconciliation order sheet. Weekly Labs: CBC w/diff, Creatinine, LFTs (Hepatic Function Test) (Labs every Tuesday while on IV Rocephin) - Case Management Consult Case Management Consult-IVF: Yes (IV abx) - Patient Information Allergies No Known Allergies Allergy (Verified 02/17/18 09:01)
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
[2018-02-20] MEDS ORDERED: Heparin Central Flush 100 UNIT/ML 5 ML Vial IV.FLUSH PRN (14:56)
--- NOTE | 2018-02-21 07:13 | P.PNOP ---
Subjective Interval history: POD 4 s/p I&D with ARACELIS right forearm doing well. no changes. picc line placed yesterday Physical Exam Vital signs: Vital Signs 02/20/18 08:00 02/20/18 12:00 02/20/18 13:40 Temperature 97.8 F 97.9 F Pulse Rate 64 65 Respiratory Rate 17 17 18 Blood Pressure 108/56 L 114/66 Pulse Oximetry 97 97 02/20/18 16:00 02/20/18 20:00 02/20/18 23:34 Temperature 97.8 F 97.2 F L 98.1 F Pulse Rate 64 69 57 L Respiratory Rate 17 18 19 Blood Pressure 108/60 101/51 L 105/55 L Pulse Oximetry 97 97 95 Intake & Output 02/20/18 02/21/18 02/21/18 18:59 06:59 18:59 Intake Total 1949 / 1949 800 / 800 Balance 1949 800 / 800 Weight 75.2 kg 75.2 kg Intake: IV 150 / 150 LR 1000 mL Inj 1,000 ML @ 80 0 / 0 mls/hr IV.CONT .[id number] BENJI Rx# :[id number] Ancef 2 GM Premix Inj 2 gm In 50 / 50 50 ml @ 200 mls/hr IV.SIG Q8H BENJI Rx#:[id number] Rocephin Inj 2,000 MG In NS Inj 100 / 100 100 ML @ 200 mls/hr IV.SIG Q24H BENJI Rx#:[id number] Oral 1800 / 1800 800 / 800 Other: # Voids 4 3 Narrative: RUE: +splint. intact. nvi Results - Labs CBC & Chem 7: 02/17/18 16:02 02/20/18 04:00 Microbiology 02/17/18 10:00 Tissue - Other Acid Fast Bacilli Smear - Final No acid fast bacilli seen - Procedures Irrigation and debridement with removal of hardware and antibiotic bead placement right ulna Assessment and Plan - Problem List (1) Chronic osteomyelitis of right ulna Code(s): M86.631 - Other chronic osteomyelitis, right radius and ulna Status: Acute (2) Fracture of right ulna with nonunion Code(s): S52.201K - Unspecified fracture of shaft of right ulna, subsequent encounter for closed fracture with nonunion Status: Acute - Assessment and Plan 1) 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 -f/u with Blake or PA in 2 weeks -cleared for discharge once infectious Dz arranged antibiotics
[2018-02-21] MEDS: Calcium/Vitamin D 250/125 MG Tablet PO SCH ×2 (08:39→12:13)
[2018-02-21] MEDS: Multivitamin/Minerals Therapeutic Tablet PO SCH (08:39)
[2018-02-21] MEDS: Senna/Docusate Sodium 8.6/50 MG Tablet PO SCH (08:39)
[2018-02-21] MEDS ORDERED: Heparin Central Flush 100 UNIT/ML 5 ML Vial IV.FLUSH SCH (09:00)
--- NOTE | 2018-02-21 10:46 | P.PNID ---
Infectious Disease Brief Note ID NOTE Spoke with TORSTEN SARMIENTO was informed that medication wont be available until tomorrow Patient is on once a day Rocephin Patient can get his dose of Rocephin now, and his next dose wont be due until tomorrow and his Abx will be availbe in [facility] then. He can be D/C today after getting his IV Rocephin Spoke with TORSTEN D/W RN
== END 2018-02-21 13:12 | DRG 496 ==
LOC: HSDI 08:18 → N07 15:21
PROVIDERS: ADMIT Orthopaedic Surgery Orthopaedic Trauma; ATTEND Orthopaedic Surgery Orthopaedic Trauma
CPT/HCPCS: 36569; 73090; 76000; 76937; 80053; 80202; 82565; 85025; 85651; 85652; 86140; 86403; 87015; 87070; 87102; 87116; 87147; 87176; 87186; 87205; 87206; 94150; C1713; C1776; J0690; J0692; J0696; J1170; J1642; J2060; J2175; J2250; J2270; J3010; J3370; J7050; J7120